=== PATIENT | female | born 2000 | race Caucasian/White ===

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

== ENCOUNTER 2024-06-19 04:04 | Inpatient (IN) | payer OTHER ==
[~2024-06-19] VITALS: Ht 160 cm; Wt 74.4 kg
[~2024-06-19 04:04] MED LIST changes: +IBUPROFEN800 MG PO; +PERCOCET 5-3251 EACH PO; +ZOFRAN8 MG PO
[2024-06-19] MEDS ORDERED: CALCIUM CARBONATE 500 MG CHEW PO PRN ×2 (04:45→16:30)
[2024-06-19] MEDS ORDERED: fentaNYL citrate 100 MCG/2 ML VIAL IV PRN (04:45)
[2024-06-19] MEDS ORDERED: MAGNESIUM HYDROXIDE/AL HYDROX 30 ML CUP PO PRN ×2 (04:45→16:30)
[2024-06-19] MEDS ORDERED: LACTATED RINGER'S 1,000 ML IV PRN (04:45)
[2024-06-19 05:15] LABS: HEMATOCRIT 42.4 % (35.0-50.0); HEMOGLOBIN 14.7 g/dL (12.0-18.0); MCH 31.9 (27-36); MCHC 34.6 g/dl (30-36); MCV 92.1 fl (81-99); RBC 4.6 M/ul (4.3-5.7); RDW 12.9 (10.5-15.0)
[2024-06-19] MEDS ORDERED: ROPIVACAINE 0.2% 200 ML BAG ONE (05:40)
[2024-06-19] MEDS ORDERED: fentaNYL citrate 100 MCG/2 ML VIAL ONE (05:40)
[2024-06-19] MEDS ORDERED: ROPIVACAINE 0.2% 200 ML BAG EPIDURAL SCH (05:45)
[2024-06-19] MEDS ORDERED: LACTATED RINGER'S 500 ML IV PRN (05:45)
[2024-06-19] MEDS ORDERED: LACTATED RINGER'S 2,000 ML IV ONE (05:45)
[2024-06-19] MEDS ORDERED: ePHEDrine sulfate 5 MG/ML SYRINGE IV PRN (05:45)
[2024-06-19 05:48] LABS: AMPHETAMINES, URINE NEGATIVE (NEGATIVE); BARBITURATES, URINE NEGATIVE (NEGATIVE); BENZODIAZEPINE, URINE NEGATIVE (NEGATIVE); BUPRENORPHINE, URINE NEGATIVE (NEGATIVE); CANNABINOID, URINE NEGATIVE (NEGATIVE); COCAINE, URINE NEGATIVE (NEGATIVE); ECSTASY, URINE NEGATIVE (NEGATIVE); FENTANYL, URINE NEGATIVE (NEGATIVE); METHADONE, URINE NEGATIVE (NEGATIVE); OPIATES, URINE NEGATIVE (NEGATIVE); OXYCODONE, URINE NEGATIVE (NEGATIVE); PHENCYCLIDINE, URINE NEGATIVE (NEGATIVE)
[2024-06-19 05:48] LABS: ABO A; ANTIBODY SCREEN NEGATIVE; RH POSITIVE
[2024-06-19] MEDS ORDERED: OXYTOCIN/0.9 % SODIUM CHLORIDE 30 UNITS/500 ML BAG IV SCH (07:30)
[2024-06-19 07:34] VITALS: BP 121/70
[2024-06-19] MEDS ORDERED: HYDROCODONE/ACETA 5/325 TAB PO PRN (16:30)
[2024-06-19] MEDS ORDERED: HYDROCORTISONE ACETATE 25 MG SUPP PR PRN (16:30)
[2024-06-19] MEDS ORDERED: OXYTOCIN/0.9 % SODIUM CHLORIDE 500 ML IV SCH (16:30)
[2024-06-19] MEDS ORDERED: OXYCODONE/APAP 5/325 TAB PO PRN (16:30)
[2024-06-19] MEDS ORDERED: WITCH HAZEL/GLYCERIN 1 EA PAD TOP PRN (16:30)
[2024-06-19] MEDS ORDERED: BENZOCAINE 60 ML AEROSOL TOP PRN (16:30)
[2024-06-19] MEDS ORDERED: MAGNESIUM HYDROXIDE 30 ML UDC PO PRN (16:30)
[2024-06-19] MEDS ORDERED: ACETAMINOPHEN 325 MG TAB PO SCH (20:00)
[2024-06-19] MEDS ORDERED: IBUPROFEN 600 MG TAB PO SCH (20:00)
[2024-06-19] MEDS ORDERED: SENNOSIDES/DOCUSATE 1 EA TAB PO SCH (21:00)
== END 2024-06-20 19:52 | disposition home or self-care (01) | DRG 807 ==
LOC: FBCO 04:04 → FBC 04:37
PROVIDERS: ADMIT Obstetrics & Gynecology; ATTEND Obstetrics & Gynecology
PROC: 10E0XZZ Delivery of Products of Conception, External Approach (ICD-10-PCS; principal; 2024-06-19)
PROC: 0KQM0ZZ Repair Perineum Muscle, Open Approach (ICD-10-PCS; 2024-06-19)
PROC: 10907ZC Drainage of Amniotic Fluid, Therapeutic from Products of Conception, Via Natural or Artificial Opening (ICD-10-PCS; 2024-06-19)
PROC: 00HU33Z Insertion of Infusion Device into Spinal Canal, Percutaneous Approach (ICD-10-PCS; 2024-06-19)
PROC: 3E0R3BZ Introduction of Anesthetic Agent into Spinal Canal, Percutaneous Approach (ICD-10-PCS; 2024-06-19)
DX: O70.1 Second degree perineal laceration during delivery (principal); Z37.0 Single live birth; Z3A.39 39 weeks gestation of pregnancy; Z91.040 Latex allergy status; Z91.048 Other nonmedicinal substance allergy status; Z90.89 Acquired absence of other organs; Z98.890 Other specified postprocedural states; Z87.81 Personal history of (healed) traumatic fracture; Z79.899 Other long term (current) drug therapy
CPT/HCPCS: 36415; 80307; 85027; 86850; 86900; 86901; A9270; J2795; J3010; J7121